=== PATIENT | male | born 1950 | race Caucasian/White ===

== ENCOUNTER 2020-09-09 00:19 | Emergency (ER) | payer OTHER ==
[~2020-09-09] VITALS: Ht 172.7 cm; Wt 91.0 kg
[2020-09-09 01:20] LABS: BASOPHILS % 0.5 % (0.0-2.0); CHLORIDE 97 mEq/L (98-107); EOSINOPHILS % 1.7 % (0.0-5.0); HEMATOCRIT. 36.6 % (42.0-52.0); HEMOGLOBIN. 11.9 g/dL (14.0-18.0); LYMPHOCYTES % 18.5 % (20.0-50.0); MEAN CORPUSCULAR HEMOGLOBIN 25.3 pg (28.0-32.0); MEAN CORPUSCULAR VOLUME 77.6 fL (80.0-94.0); MEAN PLATELET VOLUME 8.8 fl (7.4-10.4); MONOCYTES % 10.6 % (2.0-8.0); NEUTROPHILS % 68.7 % (40.0-76.0); PLATELET 298 x1000/uL (130-400); RED BLOOD CELL COUNT 4.72 mill/uL (4.7-6.1); RED CELL DISTRIBUTION WIDTH 14.6 % (11.6-14.6)
[2020-09-09 05:08] VITALS: BP 144/81
== END 2020-09-09 05:16 | disposition home or self-care (01) ==
LOC: ER 00:19
DX: F41.9 Anxiety disorder, unspecified (principal); R06.02 Shortness of breath; E11.9 Type 2 diabetes mellitus without complications; E78.00 Pure hypercholesterolemia, unspecified; I10 Essential (primary) hypertension; I25.2 Old myocardial infarction; Z98.61 Coronary angioplasty status
CPT/HCPCS: 36415; 71045; 80053; 83880; 84484; 85025; 93005; 99285

== ENCOUNTER 2021-05-21 18:21 | Emergency (ER) | payer MEDICARE, OTHER ==
[~2021-05-21] VITALS: Ht 167.6 cm; Wt 90.0 kg
[2021-05-21] MEDS ORDERED: ACETAMINOPHEN 325MG TABLET PO STA (18:45)
[2021-05-21 19:20] LABS: BASOPHILS % 0.6 % (0.0-2.0); EOSINOPHILS % 3.6 % (0.0-5.0); HEMATOCRIT. 43.3 % (42.0-52.0); HEMOGLOBIN. 14.1 g/dL (14.0-18.0); LYMPHOCYTES % 28.2 % (20.0-50.0); MEAN CORPUSCULAR HEMOGLOBIN 24.6 pg (28.0-32.0); MEAN CORPUSCULAR VOLUME 75.9 fL (80.0-94.0); MEAN PLATELET VOLUME 8.8 fl (7.4-10.4); MONOCYTES % 7.2 % (2.0-8.0); NEUTROPHILS % 60.4 % (40.0-76.0); PLATELET 245 x1000/uL (130-400); RED BLOOD CELL COUNT 5.71 mill/uL (4.7-6.1); RED CELL DISTRIBUTION WIDTH 14.7 % (11.6-14.6)
[2021-05-21 19:27] LABS: CHLORIDE 101 mEq/L (98-107)
[2021-05-21 19:30] LABS: PROTHROMBIN TIME 10.7 sec (9.6-11.0)
[2021-05-21 20:44] VITALS: BP 170/77
== END 2021-05-21 21:05 | disposition home or self-care (01) ==
LOC: ER 18:28
DX: S09.8XXA Other specified injuries of head, initial encounter (principal); R04.0 Epistaxis; E11.9 Type 2 diabetes mellitus without complications; H40.9 Unspecified glaucoma; I10 Essential (primary) hypertension; E78.00 Pure hypercholesterolemia, unspecified; I25.2 Old myocardial infarction; E66.9 Obesity, unspecified; Z68.32 Body mass index [BMI] 32.0-32.9, adult; Z71.3 Dietary counseling and surveillance; W01.0XXA Fall on same level from slipping, tripping and stumbling without subsequent striking against object, initial encounter; Y93.9 Activity, unspecified; Y92.9 Unspecified place or not applicable
CPT/HCPCS: 36415; 70486; 80053; 85025; 99284